=== PATIENT | male | born 1970 | race Caucasian/White ===

== ENCOUNTER 2019-12-25 07:11 | Emergency (ER) | payer MEDICARE ==
[~2019-12-25] VITALS: Ht 185.4 cm; Wt 80.4 kg
[~2019-12-25 07:11] MED LIST: BENZ1TAB61 PO; BUSP10TA PO; DIVA-61 PO; DIVA500T17 PO; NICO-487 TD; RISP1TAB45 PO; RISP3TAB3 PO
--- NOTE | 2019-12-25 07:42 | NUR ---
Patient reports having thoughts in his head, no command thoughts. Denies SI/HI. Reports that he would feel better if he got back on his meds.
[2019-12-25 08:57] VITALS: BP 134/54
== END 2019-12-25 09:00 | disposition home or self-care (01) ==
LOC: ED 07:59
DX: F23 Brief psychotic disorder (principal); F17.200 Nicotine dependence, unspecified, uncomplicated; Z76.0 Encounter for issue of repeat prescription
CPT/HCPCS: 99281; 99283

== ENCOUNTER 2020-01-06 20:42 | Emergency (ER) | payer MEDICARE ==
[~2020-01-06] VITALS: Ht 182.9 cm; Wt 54.5 kg
[2020-01-06 20:50] VITALS: BP 141/88
--- NOTE | 2020-01-06 21:07 | NUR ---
pt denies si or medical complaint. Pt given belongings and is going to leave
--- NOTE | 2020-01-06 21:16 | NUR ---
pt does not want to wait for discharge papers. pt ambulated out of er with a steady gait.
== END 2020-01-06 21:19 | disposition home or self-care (01) ==
LOC: ED 21:17
DX: R44.0 Auditory hallucinations (principal); F15.10 Other stimulant abuse, uncomplicated; Z76.0 Encounter for issue of repeat prescription; F17.210 Nicotine dependence, cigarettes, uncomplicated
CPT/HCPCS: 99283; 99406

== ENCOUNTER 2020-01-07 16:03 | Emergency (ER) | payer MEDICARE ==
--- NOTE | 2020-01-07 16:15 | NUR ---
NO ANSWER TO TRIAGE.
--- NOTE | 2020-01-07 16:25 | NUR ---
NO ANSWER TO TRIAGE
--- NOTE | 2020-01-07 16:40 | NUR ---
CALLED FOR PT. PT NOT IN LOBBY FOR 3RD ATTEMPT.
== END 2020-01-07 16:45 | disposition left against medical advice (07) ==
LOC: ED 16:35
DX: F29 Unspecified psychosis not due to a substance or known physiological condition (principal); Z53.21 Procedure and treatment not carried out due to patient leaving prior to being seen by health care provider

== ENCOUNTER 2020-01-10 11:13 | Emergency (ER) | payer MEDICARE ==
[~2020-01-10] VITALS: Ht 185.4 cm; Wt 75.5 kg
[2020-01-10 11:15] VITALS: BP 126/74
--- NOTE | 2020-01-10 11:28 | NUR ---
PT HAS SI THOUGHTS. PT STATES HE IS HEARING VOICES TO KILL HIMSELF W KNIFE THROUGH HIS HEART. PT HAS NOT ATTEMPTED, DOES NOT OWN KNIFE. PT STATES HE HAS NOT HAD HIS MEDICATIONS FOR 2 WEEKS. RISPERIDOL AND DEPAKOTE. UNABLE TO FILL THEM.
[2020-01-10] MEDS ORDERED: LORazepam 1MG TABLET PO ONE (12:00)
--- NOTE | 2020-01-10 12:08 | NUR ---
LABS/[facility] SENT. MANAGER [employer]UST[employer]S EVONNE AT BEDSIDE.
[2020-01-10 12:15] LABS: BASOPHILS # (AUTO) 0.03 x10^3/uL (0-0.1); BASOPHILS % (AUTO) 0 % (0-1); EOSINOPHILS # (AUTO) 0.08 x10^3/uL (0-0.4); EOSINOPHILS % (AUTO) 1 % (1-7); LYMPHOCYTES # (AUTO) 2.14 x10^3/uL (1-3.4); LYMPHOCYTES % (AUTO) 32 % (22-44); MD NO; MEAN CORPUSCULAR HEMOGLOBIN 29.5 pg (27.5-34.5); MEAN CORPUSCULAR HGB CONC 33.2 g/dL (33.2-36.2); MEAN CORPUSCULAR VOLUME 89.1 fL (81-97); MEAN PLATELET VOLUME 8.4 fL (7.4-10.4); MONOCYTES # (AUTO) 0.62 x10^3/uL (0.2-0.8); MONOCYTES % (AUTO) 9 % (2-9); NEUTROPHILS % (AUTO) 58 % (42-75); PLATELET COUNT 279 x10^3/uL (130-400); RED BLOOD COUNT 4.44 x10^6/uL (4.38-5.82); RED CELL DISTRIBUTION WIDTH 15.3 % (9.4-14.8)
[2020-01-10 12:26] LABS: ALBUMIN 3.2 g/dL (3.4-5.0); ANION GAP 7 mmol/L (5-15); CALCIUM 8.7 mg/dL (8.5-10.1); CHLORIDE 103 mmol/L (98-107)
[2020-01-10 12:28] LABS: CREATININE 0.74 mg/dL (0.7-1.3); SALICYLATE LEVEL 2.1 mg/dL (2.8-20.0)
[2020-01-10] MEDS ORDERED: LORazepam 1MG TABLET ONE (12:28)
[2020-01-10] MEDS ORDERED: BENZTROPINE 1 MG TABLET ONE (12:28)
[2020-01-10] MEDS ORDERED: RISPERIDONE 2 MG TABLET ONE (12:28)
[2020-01-10] MEDS ORDERED: RISPERIDONE 1 MG TABLET PO SCH (12:30)
[2020-01-10] MEDS ORDERED: BENZTROPINE 1 MG TABLET PO SCH (12:30)
[2020-01-10 12:36] LABS: AMPHETAMINE SCREEN, URINE Negative (Negative); BARBITURATE SCREEN, URINE Negative (Negative); BENZODIAZEPINE SCREEN, URINE Negative (Negative); CANNABINOID SCREEN, URINE Positive (Negative); COCAINE SCREEN, URINE Negative (Negative); METHADONE SCREEN, URINE Negative (Negative); OPIATE SCREEN, URINE Negative (Negative)
--- NOTE | 2020-01-10 12:42 | NUR ---
SITTER PRESENT, ROOM SECURE. BELONGINGS IN SECURE LOCKER. MEDICATED PER ORDERS. MEAL TRAY ORDERED
--- NOTE | 2020-01-10 13:39 | NUR ---
REPORT TO [facility]
[2020-01-10] MEDS ORDERED: DIVALPROEX 500 MG TABLET.DR PO SCH (21:00)
[2020-01-10] MEDS ORDERED: BUSPIRONE 10 MG TABLET PO SCH (21:00)
== END 2020-01-11 05:19 ==
LOC: ED 13:41
DX: R45.851 Suicidal ideations (principal); R44.0 Auditory hallucinations; Z72.9 Problem related to lifestyle, unspecified
CPT/HCPCS: 36415; 80048; 80307; 82040; 85025; 99285

== ENCOUNTER 2020-01-10 13:31 | Inpatient (IN) | payer MEDICARE ==
[~2020-01-10] VITALS: Ht 185.4 cm; Wt 76.4 kg
[2020-01-10] MEDS ORDERED: DOCUSATE 100 MG CAPSULE PO PRN (14:00)
[2020-01-10] MEDS ORDERED: BISACODYL 10 MG SUPP PR PRN (14:00)
[2020-01-10] MEDS ORDERED: ONDANSETRON ODT 4 MG PO PRN (14:00)
[2020-01-10] MEDS ORDERED: POLYETHYLENE GLYCOL 17 GM PACKET PO PRN (14:00)
[2020-01-10] MEDS ORDERED: ACETAMINOPHEN 325 MG TABLET PO PRN (14:00)
[2020-01-10 14:33] VITALS: BP 101/64
[2020-01-10 19:28] VITALS: BP 136/73
[2020-01-10] MEDS: BUSPIRONE 10 MG TABLET PO SCH (20:17)
[2020-01-10] MEDS: DIVALPROEX 500 MG TAB.ER.24H PO SCH (20:17)
[2020-01-10] MEDS: RISPERIDONE 1 MG TABLET PO SCH (20:17)
[2020-01-10] MEDS: BENZTROPINE 1 MG TABLET PO SCH (20:17)
[2020-01-11 08:00] VITALS: BP 120/85
[2020-01-11] MEDS: NICOTINE 21 MG/24 HR PATCH.TD24 TD SCH (08:45)
[2020-01-11] MEDS: BENZTROPINE 1 MG TABLET PO SCH ×2 (08:45→22:24)
[2020-01-11] MEDS: BUSPIRONE 10 MG TABLET PO SCH ×2 (08:45→22:23)
[2020-01-11] MEDS: RISPERIDONE 1 MG TABLET PO SCH ×2 (08:45→22:23)
[2020-01-11 14:09] LABS: MICROSCOPIC NOT IND
[2020-01-11] MEDS: LORazepam 1MG TABLET PO PRN (14:20)
[2020-01-11 19:46] VITALS: BP 91/56
[2020-01-11 22:15] VITALS: BP 123/80
[2020-01-11] MEDS: DIVALPROEX 500 MG TAB.ER.24H PO SCH (22:23)
[2020-01-12 07:33] VITALS: BP 113/66
[2020-01-12] MEDS: BUSPIRONE 10 MG TABLET PO SCH ×2 (08:21→21:01)
[2020-01-12] MEDS: LORazepam 1MG TABLET PO PRN ×3 (08:21→21:47)
[2020-01-12] MEDS: RISPERIDONE 1 MG TABLET PO SCH ×2 (08:21→21:01)
[2020-01-12] MEDS: NICOTINE 21 MG/24 HR PATCH.TD24 TD SCH (08:21)
[2020-01-12] MEDS: BENZTROPINE 1 MG TABLET PO SCH ×2 (08:21→21:01)
[2020-01-12 19:12] VITALS: BP 145/82
[2020-01-12] MEDS: DIVALPROEX 500 MG TAB.ER.24H PO SCH (21:01)
[2020-01-13 07:52] VITALS: BP 111/74
[2020-01-13] MEDS: BENZTROPINE 1 MG TABLET PO SCH ×2 (08:56→19:59)
[2020-01-13] MEDS: RISPERIDONE 1 MG TABLET PO SCH ×2 (08:56→20:00)
[2020-01-13] MEDS: BUSPIRONE 10 MG TABLET PO SCH ×2 (08:56→20:00)
[2020-01-13] MEDS: NICOTINE 21 MG/24 HR PATCH.TD24 TD SCH (08:58)
[2020-01-13] MEDS: LORazepam 1MG TABLET PO PRN (12:42)
[2020-01-13] MEDS ORDERED: DIVALPROEX 500 MG TAB.ER.24H PO SCH (14:00)
[2020-01-13] MEDS: DIVALPROEX 500 MG TABLET.DR PO SCH ×2 (14:28→19:59)
[2020-01-13 19:18] VITALS: BP 138/86
[2020-01-14 07:41] VITALS: BP 89/54
[2020-01-14] MEDS: DIVALPROEX 500 MG TABLET.DR PO SCH ×2 (08:39→20:02)
[2020-01-14] MEDS: RISPERIDONE 1 MG TABLET PO SCH ×2 (08:40→20:02)
[2020-01-14] MEDS: BENZTROPINE 1 MG TABLET PO SCH ×2 (08:41→20:02)
[2020-01-14] MEDS: LORazepam 1MG TABLET PO PRN ×2 (08:41→15:39)
[2020-01-14] MEDS: BUSPIRONE 10 MG TABLET PO SCH ×2 (08:41→20:02)
[2020-01-14] MEDS: NICOTINE 21 MG/24 HR PATCH.TD24 TD SCH (08:43)
[2020-01-14] MEDS ORDERED: BUSP10TA PO (14:21)
[2020-01-14] MEDS ORDERED: NICO-487 TD (14:21)
[2020-01-14] MEDS ORDERED: DIVA-61 PO ×2 (14:21)
[2020-01-14] MEDS ORDERED: RISP1TAB45 PO (14:21)
[2020-01-14] MEDS ORDERED: BENZ1TAB61 PO (14:21)
[2020-01-15 07:46] VITALS: BP 110/69
[2020-01-15] MEDS: DIVALPROEX 500 MG TABLET.DR PO SCH (08:10)
[2020-01-15] MEDS: NICOTINE 21 MG/24 HR PATCH.TD24 TD SCH (08:11)
[2020-01-15] MEDS: BUSPIRONE 10 MG TABLET PO SCH (08:11)
[2020-01-15] MEDS: RISPERIDONE 1 MG TABLET PO SCH (08:11)
[2020-01-15] MEDS: BENZTROPINE 1 MG TABLET PO SCH (08:12)
[2020-01-15] MEDS: LORazepam 1MG TABLET PO PRN (08:30)
== END 2020-01-15 09:30 | disposition home or self-care (01) | DRG 885 ==
LOC: 3E 14:06
PROVIDERS: ADMIT Psychiatry & Neurology Psychosomatic Medicine; ATTEND Psychiatry & Neurology Psychosomatic Medicine
DX: F25.0 Schizoaffective disorder, bipolar type (principal); F10.10 Alcohol abuse, uncomplicated; F12.10 Cannabis abuse, uncomplicated; F17.200 Nicotine dependence, unspecified, uncomplicated; F41.1 Generalized anxiety disorder; Z79.899 Other long term (current) drug therapy; D71 Functional disorders of polymorphonuclear neutrophils; Z91.14 Patient's other noncompliance with medication regimen
CPT/HCPCS: 36415; 80048; 80307; 81003; 82040; 82140; 85025; 93005; 99285